=== PATIENT | female | born 1995 | race Caucasian/White ===

== ENCOUNTER 2021-06-01 05:58 | Inpatient (IN) | payer BC ==
[2021-06-01] MEDS ORDERED: LIDOCAINE 0.5% (PF) 5 MG/ML (50 ML SDV) SQ PRN (06:18)
[2021-06-01] MEDS ORDERED: METHYLERGONOVINE 0.2 MG/ML 1 ML AMP IM PRN (06:18)
[2021-06-01] MEDS ORDERED: TERBUTALINE 1 MG/ML VIAL SQ PRN (06:18)
[2021-06-01] MEDS ORDERED: CARBOPROST TROMETHAMINE 250 MCG/ML 1 ML AMP IM PRN (06:18)
[2021-06-01] MEDS ORDERED: OXYTOCIN 10 UNIT/ML 1 ML VIAL IM PRN (06:18)
[2021-06-01] MEDS ORDERED: PENICILLIN G POTASSIUM 5,000,000 UNIT in DEXTROSE 5% IN WATER 100 ML IVPB STA ×2 (06:18)
[2021-06-01] MEDS: LACTATED RINGERS 1,000 ML IV SCH ×4 (06:47→22:17)
[2021-06-01] MEDS: OXYTOCIN 30 UNITS/500 ML NS 30 UNIT in SALINE 1 500ML.BAG IV SCH ×2 (06:49→19:16)
[2021-06-01 06:54] LABS: Basophils % (A) 0 %; Eosinophils # (A) 0.1 k/uL (0-0.7); Eosinophils % (A) 1 %; HCT 31.6 % (34.0-46.0); HGB 10.8 gm/dL (11.4-16.0); Lymphocytes # (A) 1.7 k/uL (1.0-4.8); Lymphocytes % (A) 15 %; MCHC 34.3 g/dL (31.0-37.0); MCV 84.4 fL (80.0-100.0); Mean Platelet Volume 9.7; Monocytes # (A) 0.4 k/uL (0-1.0); Monocytes % (A) 4 %; Neutrophils # (A) 9.6 k/uL (1.3-7.7); Neutrophils % (A) 80 %; Platelet Count 199 k/uL (150-450); RBC 3.74 m/uL (3.80-5.40); RDW 12.9 % (11.5-15.5)
--- NOTE | 2021-06-01 08:22 | P.HPOB ---
History of Present Illness H&P Date: 06/01/21 Chief Complaint: My water broke at 3:00 this morning. This is a 26 rolled white female 1 para 0 EDC 05/29/2021 at 40-3/7 weeks' gestation. Patient presents with a history of her water breaking this morning at 3 AM, clear fluid. Fetus is been active throughout the . She denies vaginal bleeding. Past medical history is significant for supraventricular tachycardia, ablation 2 with good results. Past surgical history cardiac ablation age 8 and 16, wisdom teeth extracted. Current medications vitamins daily, baby aspirin daily. ALLERGIES none known. Family history significant for leukemia, hypertension. Social history patient has never been a tobacco smoker, she is , she is employed. She denies alcohol or drug use. history significant for blood type O positive, rubella status immune. VDRL testing, urine culture, hepatitis B surface antigen, HIV testing, gonorrhea and chlamydia cultures all negative. Group B strep cultures positive. On exam patient is 5 foot 9 inches, 221 pounds, pulse 103, temperature 97.8, b lood pressure 132/87 on admission. The general physical exam is within normal limits. Extremities reveal no edema. Chest is clear in all dominique. heart rate is now in the 150s with reasonable overall variability. Rare uterine contractions are noted. Cervix is 1-2 cm dilated, very posterior, -3 station, vertex presentation, perhaps 30% effaced. Internal scalp lead is applied. Impression: 40-3/7 weeks intrauterine , positive group B strep cultures, early labor. Plan: Penicillin G prophylaxis has been started and will continue per hospital protocol. Oxytocin per protocol please. Close maternal and surveillance. Anticipate normal spontaneous vaginal delivery. Review of Systems Constitutional: Reports as per HPI Past Medical History Additional Past Medical History / Comment(s): 2 cardiac ablasion due to SVT at 8yrs old and 16 yrs old History of Any Multi-Drug Resistant Organisms: None Reported Additional Past Surgical History / Comment(s): 2 cardiac ablasion due to SVT at 8yrs old and 16 yrs old Past Anesthesia/Blood Transfusion Reactions: No Reported Reaction Past Psychological History: No Psychological Hx Reported Smoking Status: Never smoker Past Drug Use History: None Reported Medications and Allergies Home Medications Medication Instructions Recorded Confirmed Type Pnv No.95/Ferrous Fum/Folic AC 1 tab PO DAILY 06/01/21 06/01/21 History [ Multivitamin Tablet] Allergies Allergy/AdvReac Type Severity Reaction Status Date / Time tasneem Allergy Rash/Hives Verified 06/01/21 06:06 Exam Vital Signs Temp Pulse Resp BP Pulse Ox 06/01/21 06:17 97.8 F 103 H 16 132/87 98 06/01/21 06:04 97.8 F 103 H 16 132/87 98 Intake and Output 05/31/21 06/01/21 06/01/21 22:59 06:59 14:59 Other: Weight 100.244 kg See dictation under HPI please Results Result Diagrams: 06/01/21 06:22 Abnormal Lab Results - Last 24 Hours (Table) 06/01/21 Range/Units 06:22 WBC 12.0 H (3.8-10.6) k/uL RBC 3.74 L (3.80-5.40) m/uL Hgb 10.8 L (11.4-16.0) gm/dL Hct 31.6 L (34.0-46.0) % Neutrophils # 9.6 H (1.3-7.7) k/uL Assessment and Plan Assessment: 40-3/7 weeks intrauterine , spontaneous amniorrhexis not in labor, unfavorable cervix, positive group B strep cultures. Plan: Penicillin G per hospital protocol. Oxytocin please per hospital protocol. Close maternal and surveillance. Analgesic options reviewed with the patient. Anticipate normal spontaneous vaginal delivery. Time with Patient: Less than 30
[2021-06-01] MEDS: PENICILLIN G POTASSIUM 2,500,000 UNIT in DEXTROSE 5% IN WATER 100 ML IVPB SCH ×6 (10:19→18:02)
[2021-06-01] MEDS ORDERED: fentaNYL (PF) 50 MCG/ML 5 ML AMP ONE (14:35)
[2021-06-01] MEDS ORDERED: ROPIVACAINE 5MG/ML 20ML VIAL ONE (14:35)
[2021-06-01] MEDS ORDERED: SODIUM CHLORIDE 0.9% 100 ML BAG ONE (14:35)
[2021-06-01] MEDS ORDERED: diphenhydrAMINE 50 MG/ML 1 ML VIAL IVP PRN ×2 (18:44)
[2021-06-01] MEDS ORDERED: diphenhydrAMINE 50 MG CAP PO PRN (18:44)
[2021-06-01] MEDS ORDERED: ACETAMINOPHEN TAB 325 MG TAB PO PRN (18:44)
[2021-06-01] MEDS ORDERED: diphenhydrAMINE 25 MG CAP PO PRN (18:44)
[2021-06-01] MEDS ORDERED: ZOLPIDEM 5 MG TAB PO PRN (18:44)
[2021-06-01] MEDS ORDERED: LANOLIN CREAM 5 GM TUBE TOPICAL PRN (18:44)
[2021-06-01] MEDS ORDERED: SIMETHICONE 80 MG CHEWABLE PO PRN (18:44)
[2021-06-01] MEDS ORDERED: HYDROCORTISONE 2.5% RECTAL CREAM 30 GM TUBE RECTAL PRN (18:44)
[2021-06-01] MEDS ORDERED: BENZOCAINE/MENTHOL SPRAY 1 GM/SPRAY AEROSOL TOPICAL PRN (18:44)
--- NOTE | 2021-06-01 18:44 | P.PROBDLV ---
Vaginal Delivery Note - . Vaginal Delivery Note: This is a 26-year-old white female 1 para 0 EDC 05/29/2021 at 40-3/7 weeks' gestation. Patient presented with spontaneous amniorrhexis which occurred at home, clear fluid, at 0300 hrs. Group B strep cultures were positive. She did receive 4 doses of penicillin G through the course of labor. Please see my dictated history and physical for details. Oxytocin was started and titrated. Epidural was placed per her request. She ultimately became completely dilated at 1802 hrs. and began the second stage of labor at that time. She pushed successfully in the dorsal lithotomy position. Perineal body was prepped and draped in usual sterile fashion. Infant's head delivered occiput anterior and she restituted accordingly. There was no nuchal cord noted. The left or anterior shoulder was gently delivered from underneath the pubic symphysis at which time the oropharynx, nasopharynx, and external nares were bulb suctioned on the perineal body. Patient was officially delivered of a liveborn female infant at 1828 hrs. Umbilical cord was doubly clamped and ligated, she was handed to waiting nursing staff for evaluation where scores of 47 and 9 at one and 5 and 10 minutes respectively were given. The placenta was delivered spontaneously, it was inspected and noted to be intact with trivascular cord at 1831 hrs. Uterus is then massaged. Careful inspection of cervix, vagina, perineum, periurethral, and perirectal areas revealed a small second-degree perineal laceration. This was repaired in the usual fashion using 3-0 repeat suture. 40 estimated blood loss 200 mL's. Patient and her family are allowed to begin the bonding experience in the LDR.
[2021-06-01] MEDS: IBUPROFEN 600 MG TAB PO SCH (18:50)
[2021-06-01 19:15] VITALS: RESP 16
[2021-06-01] MEDS: SENNOSIDES-DOCUSATE SODIUM 1 EACH TAB PO SCH (20:01)
[2021-06-01] MEDS ORDERED: BUTORPHANOL 1 MG/ML 1 ML VIAL IV PRN (20:58)
--- NOTE | 2021-06-01 21:33 | P.PN ---
Subjective Progress Note Date: 06/01/21 Called to the bedside to evaluate increased vaginal bleeding with clot passage, approximately 3 hours vaginal delivery. Objective - Vital Signs Vital signs: Vital Signs Temp 98.3 F 06/01/21 20:47 Pulse 78 06/01/21 20:47 Resp 16 06/01/21 20:47 BP 131/70 06/01/21 20:47 Pulse Ox 98 06/01/21 20:47 Intake & Output 06/01/21 06/01/21 06/02/21 06:59 18:59 06:59 Intake Total 12.45 Output Total 400 200 Balance -400 -187.55 Weight 100.244 kg Intake: Intake, IV Titration 12.45 Amount Oxytocin 30 Units/500 ml 12.45 Ns 30 unit In Saline 1 500ml.bag @ Per Protocol IV .Q0M [facility] Rx#:[id number] Output: Urine 400 200 Straight 400 100 - Constitutional General appearance: Present: average body habitus, cooperative - EENT Eyes: Present: PERRLA ENT: Present: hearing grossly normal - Cardiovascular Rhythm: regular - Gastrointestinal Gastrointestinal Comment(s): Fundus at the midline, symmetric, at the level of the umbilicus. Massaged for several large blood clots. Examination then after 1 mg of Stadol given, revealed additional blood clots in the uterine fundus, these are evacuated manually. Hemabate given IM 1. At the end of the procedure, uterus approximately 16-18 weeks size, firm, midline. Very minimal vaginal bleeding after procedure. Blood clots obtained 500 mL's. General gastrointestinal: Present: normal bowel sounds - Neurologic Neurologic: Present: CNII-XII intact - Psychiatric Psychiatric: Present: A&O x's 3, appropriate affect, intact judgment & insight - Labs CBC & Chem 7: 06/01/21 06:22 Labs: Abnormal Lab Results - Last 24 Hours (Table) 06/01/21 Range/Units 06:22 WBC 12.0 H (3.8-10.6) k/uL RBC 3.74 L (3.80-5.40) m/uL Hgb 10.8 L (11.4-16.0) gm/dL Hct 31.6 L (34.0-46.0) % Neutrophils # 9.6 H (1.3-7.7) k/uL Assessment and Plan Assessment: Increased bleeding status post delivery 3 hours ago. Resolved with massage, Methergine, manual evacuation of clots, Hemabate. Vital signs stable, pulse 80 Plan: Continue IV fluids. Check CBC now. Recheck CBC in a.m. Time with Patient: Less than 30
[2021-06-01 22:29] LABS: HCT 31.5 % (34.0-46.0); HGB 10.1 gm/dL (11.4-16.0); MCH 27.5 pg (25.0-35.0); MCHC 32.3 g/dL (31.0-37.0); MCV 85.1 fL (80.0-100.0); Mean Platelet Volume 9.4; Platelet Count 163 k/uL (150-450); RDW 13.3 % (11.5-15.5); WBC 27.4 k/uL (3.8-10.6)
[2021-06-01 23:28] LABS: Band Neutrophils % 29 %; Lymphocytes # (M) 0.82 k/uL (1.0-4.8); Monocytes # (M) 0.27 k/uL (0-1.0); Neutrophils % (M) 68 %; Nucleated Red Blood Cells 0 /100 WBC (0-0); Total Cells Counted 200
[2021-06-01 23:30] LABS: Anisocytosis (M) Present; Polychromasia Present
[2021-06-02] MEDS: IBUPROFEN 600 MG TAB PO SCH ×4 (00:47→20:25)
[2021-06-02 06:51] LABS: Basophils % (A) 0 %; Eosinophils % (A) 0 %; HGB 9.3 gm/dL (11.4-16.0); Hypochromasia Slight; Lymphocytes # (A) 1.5 k/uL (1.0-4.8); Lymphocytes % (A) 6 %; MCH 27.6 pg (25.0-35.0); MCHC 32.2 g/dL (31.0-37.0); MCV 85.9 fL (80.0-100.0); Mean Platelet Volume 9.8; Monocytes # (A) 0.7 k/uL (0-1.0); Monocytes % (A) 3 %; Neutrophils # (A) 23.7 k/uL (1.3-7.7); Neutrophils % (A) 91 %; Platelet Count 163 k/uL (150-450); RBC 3.38 m/uL (3.80-5.40); RDW 13.1 % (11.5-15.5); WBC 26.2 k/uL (3.8-10.6)
--- NOTE | 2021-06-02 07:37 | P.PN ---
Subjective Progress Note Date: 06/02/21 Principal diagnosis: day #1, doing well Minimal vaginal bleeding. Patient tired, otherwise no complaints. Objective - Vital Signs Vital signs: Vital Signs Temp 97.9 F 06/02/21 03:25 Pulse 68 06/02/21 03:25 Resp 16 06/02/21 03:25 BP 101/55 06/02/21 03:25 Pulse Ox 96 06/02/21 03:25 Intake & Output 06/01/21 06/02/21 06/02/21 18:59 06:59 18:59 Intake Total 12.45 Output Total 400 920 Balance -400 -907.55 Intake: Intake, IV Titration 12.45 Amount Oxytocin 30 Units/500 ml 12.45 Ns 30 unit In Saline 1 500ml.bag @ Per Protocol IV .Q0M [facility] Rx#:[id number] Output: Urine 400 200 Straight 400 100 Estimated Blood Loss 720 Other: # Voids 1 - Constitutional General appearance: Present: average body habitus, cooperative - EENT Eyes: Present: PERRLA ENT: Present: hearing grossly normal - Respiratory Respiratory: bilateral: CTA - Cardiovascular Rhythm: regular - Gastrointestinal Gastrointestinal Comment(s): Fundus firm, midline, symmetric, 18-16 week size. Nontender. - Genitourinary Genitourinary Comment(s): Perineal body intact. Minimal lochia rubra. - Integumentary Integumentary: Present: normal - Neurologic Neurologic: Present: CNII-XII intact - Musculoskeletal Musculoskeletal: Present: gait normal - Psychiatric Psychiatric: Present: A&O x's 3, appropriate affect, intact judgment & insight - Labs CBC & Chem 7: 06/02/21 05:58 Labs: Abnormal Lab Results - Last 24 Hours (Table) 06/01/21 06/02/21 Range/Units 21:38 05:58 WBC 27.4 H 26.2 H (3.8-10.6) k/uL RBC 3.70 L 3.38 L (3.80-5.40) m/uL Hgb 10.1 L 9.3 L (11.4-16.0) gm/dL Hct 31.5 L 29.0 L (34.0-46.0) % Neutrophils # 23.7 H (1.3-7.7) k/uL Neutrophils # (Manual) 26.50 H (1.3-7.7) k/uL Lymphocytes # (Manual) 0.82 L (1.0-4.8) k/uL Assessment and Plan Assessment: Doing well day #1. [place] in nursery on antibiotics. Plan: Continue care. Likely discharge home tomorrow.
[2021-06-02] MEDS: SENNOSIDES-DOCUSATE SODIUM 1 EACH TAB PO SCH ×2 (08:30→20:26)
[2021-06-02 23:53] VITALS: BP 114/67; PULSE 83; TEMP 98.6
[2021-06-03] MEDS: IBUPROFEN 600 MG TAB PO SCH (00:45)
--- NOTE | 2021-06-03 08:24 | P.DS ---
Providers Date of admission: 06/01/21 06:16 Expected date of discharge: 06/03/21 Attending physician: Delmy Carson Primary care physician: Stated None Hospital Course: This is a 26 rolled white female 1 para 0 EDC 05/29/2021 at 40-3/7 weeks' gestation. Patient presented with spontaneous amniorrhexis which occurred at home at 3 AM, clear fluid. She was not in active labor upon admission. Oxytocin was started and titrated. Epidural was placed per her request. Her history is significant for positive group B strep culture, penicillin G was given per hospital protocol and 4 doses received. Patient went on to deliver vaginally a liveborn female infant with scores of 47 and 9 at one and 5 and 10 minutes respectively. weighed 8 lbs. 5 oz. or 3785 g. Patient's was noted to have pneumonia and is currently in the nursery on antibiotics and doing well. Patient did have a hemorrhage at the bedside that was controlled with uterine massage, clot evacuation manually, and medications. Postdelivery hemoglobin is stable. Patient is feeling well today, voiding ambulating and passing flatus without difficulty. Fundus is firm and in the midline, symmetric and 18 week size. Extremities are negative for edema. Bleeding is minimal. Breast-feeding is going well. I have given her prescription for a double electric breast pump and instructions are forthcoming. Patient will be discharged home later today and is in very good condition for discharge home. She is reminded no intercourse, tampons or douching. She will use [id number] Advil or Aleve, or Motrin as needed for pain. She will call with any fevers shakes or chills, foul smelling or copious lochia, with the passage of large blood clots, with any pain not alleviated by [id number] products, or indeed with any concerns. She will continue taking her vitamin daily. We have briefly discussed options for contraception and we will discuss this further in the office. Assessment: Doing well day #2 Patient Condition at Discharge: Good Plan - Discharge Summary Discharge Rx Participant: No New Discharge Prescriptions: No Action Pnv No.95/Ferrous Fum/Folic AC [ Multivitamin Tablet] 1 tab PO DAILY Discharge Medication List Pnv No.95/Ferrous Fum/Folic AC [ Multivitamin Tablet] 1 tab PO DAILY 06/01/21 [History] Follow up Appointment(s)/Referral(s): Delmy Carson MD [STAFF PHYSICIAN] - 6 Weeks Discharge Disposition: HOME SELF-CARE
--- NOTE | 2021-06-03 08:39 | P.MSEPDOC ---
Presenting Problems - Arrival Data Date of Arrival on Unit: 06/01/21 Time of Arrival on Unit: 06:26 Mode of Transport: Ambulatory - Complaint OB-Reason for Admission/Chief Complaint: Possible Onset of Labor, Rule Out SROM Comment: pt. states possible SROM at 0300 today, and contractions every 7min apart rating pain 3/10, amnisure positive Medical History - Information : 1 Para: 0 Term: 0 : 0 Abortions: Spontaneous or Elective: 0 Number of Living Children: 0 - Gestational Age Gestational Age by DELISA (wks/days): 40 Weeks and 3 Days - History Complications: GBS+ Review of Systems - Review of Systems Constitutional: No problems Breast: No problems ENT: No problems Cardiovascular: No problems Respiratory: No problems Gastrointestinal: No problems Genitourinary: No problems Musculoskeletal: No problems Neurological: No problems Skin: No problems Vital Signs - Temperature Temperature: 98.6 F Temperature Source: Oral - Pulse Pulse Oximetery Pulse Rate: 83 Pulse Assessment Method: Automatic Cuff - Respirations Respiratory Rate: 16 Oxygen Delivery Method: Room Air O2 Sat by Pulse Oximetry: 96 - Blood Pressure Right Arm Blood Pressure: 114/67 Blood Pressure Mean: 82 Blood Pressure Source: Automatic Cuff Medical Screen Scoring - Cervical Exam Dilation (cm): 1 Effacement (%): 60 Membranes: Ruptured - Uterine Contractions Frequency From (mins): 2 Frequency To (mins): 4 Duration From (seconds): 40 Duration To (seconds): 60 Resting: Soft to palpation - Assessment - Baby A Baseline FHR: 165 Heart Rate - NICHD Category: Category II (Indeterminate) NST: Non-reactive Physician Notification - Physician Notified Physician Notified Date: 06/01/21 Physician Notified Time: 06:15 Physician: Delmy Carson Order Received: Yes - Notification Comment Comment: orders to admit patient for labor, start Pen G for GBS positive, and start pitocin Maternal Triage Index - Maternal Triage Index Presenting for scheduled procedure w/no complaint: No - Stat/Priority 1 Stat Priority 1: No - Urgent/Priority 2 Urgent Priority 2: No - Prompt/Priority 3 Prompt Priority 3: No - Non-Urgent/Priority 4 Non-Urgent Priority 4: Yes Criteria Met for Priority 4: patient 40weeks and 3 days, SROM, amnisure postive Disposition - Disposition OB Disposition: Admit I agree with the RN Medical Screening Exam: Yes Case reviewed; plan agreed upon as documented in EMR&OBIX.: Yes Diagnosis: LOUSE-BORNE TYPHUS
== END 2021-06-03 11:55 | disposition home or self-care (01) | DRG 807 ==
LOC: FBPOP 05:58 → 4FBP 06:16 → MERGE 06:16
PROVIDERS: ADMIT Obstetrics & Gynecology; ATTEND Obstetrics & Gynecology
PROC: 10E0XZZ Delivery of Products of Conception, External Approach (ICD-10-PCS; principal; 2021-06-01)
PROC: 0KQM0ZZ Repair Perineum Muscle, Open Approach (ICD-10-PCS; 2021-06-01)
PROC: 3E033VJ Introduction of Other Hormone into Peripheral Vein, Percutaneous Approach (ICD-10-PCS; 2021-06-01)
PROC: 0UC97ZZ Extirpation of Matter from Uterus, Via Natural or Artificial Opening (ICD-10-PCS; 2021-06-01)
DX: O99.824 Streptococcus B carrier state complicating childbirth (principal); Z37.0 Single live birth; O70.1 Second degree perineal laceration during delivery; O72.1 Other immediate postpartum hemorrhage; O26.893 Other specified pregnancy related conditions, third trimester; O34.43 Maternal care for other abnormalities of cervix, third trimester; Z3A.40 40 weeks gestation of pregnancy; Z67.40 Type O blood, Rh positive; Z79.82 Long term (current) use of aspirin; Z86.79 Personal history of other diseases of the circulatory system
CPT/HCPCS: 59025; 84112; 85025; 86850; 86900; 86901; 99213